=== PATIENT | female | born 1990 | race Caucasian/White ===

== ENCOUNTER 2018-05-23 08:54 | Outpatient (CLI) | payer OTHER ==
--- NOTE | 2018-05-23 12:04 | RAD ---
HYSTEROSALPINGOGRAM: Date: 05-23-18 Comparison: None. History: Evaluate tubal patency, history of right sided ectopic . FINDINGS: The uterus was catheterized using a balloon catheter technique under sterile condition. Injection of contrast media opacifies the normal appearing uterine cavity. Both fallopian tubes fill and spill nor meño into the peritoneal cavity. There is mild dilation involving distal aspect of right fallopian t ube. IMPRESSION: Evidence of bilateral tubal patency. POS: [facility]ATH[facility]
[2018-05-23] MEDS ORDERED: Iopamidol 300 61% 50 ML VIAL FS ONE (15:18)
== END 2018-05-23 08:55 | disposition home or self-care (01) ==
LOC: RAD 08:54
PROVIDERS: ATTEND Student in an Organized Health Care Education/Training Program
DX: Z09 Encounter for follow-up examination after completed treatment for conditions other than malignant neoplasm (principal); Z87.59 Personal history of other complications of pregnancy, childbirth and the puerperium
CPT/HCPCS: 58340; 74740